=== PATIENT | female | born 1960 | race Caucasian/White ===

== ENCOUNTER 2021-07-24 08:58 | Emergency (ER) | payer OTHER ==
[2021-07-24 10:47] LABS: BASOPHIL 0.2 % (0-2); EOSINOPHIL 0.1 % (0-5); HCT 43.6 % (37.0-47.0); HGB 13.8 g/dl (12.5-16.0); LYMPHOCYTE 14.5 % (15-48); MCH 29.4 pg (25.0-31.0); MCHC 31.7 g/dL (32.0-36.0); MCV 92.8 fL (78.0-100.0); MONOCYTE 3.2 % (0-12); MPV 9.3 fL (6.0-9.5); NEUTROPHIL 81.8 % (41-80); NRBC 0; PLT 340 K/uL (150-400); RDW 12.6 % (11.5-14.0); WBC 9.2 K/uL (4.0-10.5)
[2021-07-24 10:57] LABS: BILIRUBIN NEGATIVE (NEGATIVE); BLOOD 1+ Ery/uL (NEGATIVE); CLARITY CLEAR (CLEAR); COLOR YELLOW (YELLOW); GLUCOSE (U) NORMAL (NORMAL); LEUKOCYTES NEGATIVE Leu/uL (NEGATIVE); NITRITE NEGATIVE (NEGATIVE); PROTEIN NEGATIVE (NEGATIVE); SPECIFIC GRAVITY >=1.030 (1.001-1.030); UROBILINOGEN 0.2 mg/dL (0.2-1.0)
[2021-07-24 11:05] LABS: ALBUMIN 4.6 g/dL (3.4-5.0); BILIRUBIN - TOTAL 0.5 mg/dL (0.2-1.0); BUN/CREAT RATIO (CALC) 20.7 RATIO; CREATININE 0.82 mg/dL (0.51-0.95); GLOBULIN (CALCULATION) 3.6 g/dL; POTASSIUM 3.7 mmol/L (3.5-5.1); TOTAL PROTEIN 8.2 g/dL (6.4-8.2)
[2021-07-24 11:21] LABS: URINARY RBC RARE; URINARY WBC RARE
[2021-07-24 13:07] LABS: LDH 247 U/L (81-234)
[2021-07-24 13:09] LABS: C-REACTIVE PROTEIN < 0.20 mg/dL (<=0.90)
[2021-07-24] MEDS ORDERED: METRONIDAZOLE500 MG PO (14:45)
== END 2021-07-24 17:48 | disposition home or self-care (01) ==
LOC: FER 08:58
PROVIDERS: Emergency Medicine
DX: K52.9 Noninfective gastroenteritis and colitis, unspecified (principal); U09.9 Post COVID-19 condition, unspecified; Z88.2 Allergy status to sulfonamides; Z88.5 Allergy status to narcotic agent
CPT/HCPCS: 36415; 80053; 81001; 82728; 83615; 85025; 86140; 87045; 87046; 87449; J7030; Q9967